=== PATIENT | female | born 1950 | race Caucasian/White ===

== ENCOUNTER → 2023-07-06 09:16 | Outpatient (REF) | payer BC, SELFPAY | LOC: RCS 09:16 | PROVIDERS: ATTENDING PHYSICIAN Internal Medicine Cardiovascular Disease; FAMILY PHYSICIAN Internal Medicine | DX: R00.1 Bradycardia, unspecified (principal); Z76.89 Persons encountering health services in other specified circumstances | CPT/HCPCS: 93225; 93226 ==

== ENCOUNTER 2023-07-18 12:09 | Emergency (ER) | payer SELFPAY ==
[2023-07-18 12:20] VITALS: BP 149/64
--- NOTE | 2023-07-18 15:00 | ED.GENMED ---
History of Present Illness
<MILO Nova - Last Filed: 07/18/23 16:32>
General
Chief Complaint: Musculo-Skeletal Complaint
Source: patient
Time Seen by Provider: 07/18/23 13:26
Nursing documentation reviewed up to this point in time: agreed with
Travel History
Have you had any contact with someone who has COVID-19?: No
Do you have any symptoms of coronavirus? Fever > 100 degrees, chills, cough, shortness of breath, sore throat, loss of taste or smell, muscle aches, or headache?: No
History of Present Illness
History of Present Illness:
Patient is a 71-year-old female who presents to the ER for evaluation of constipation. Patient reports that is been 7 days since her last good bowel movement. She has used stool softeners laxatives to bowels mag citrate and tried an enema but
reports she did not do it well. She only has had some liquid stool since using mag citrate. She denies any abdominal pain nausea vomiting she is eating well.
Her last colonoscopy was 1 year ago in [place] where she resided. Colonoscopy was normal. she currently resides here.
Patient also complains of redness to her anterior left foot. She had her shoelaces too tight and noticed a little swelling to the area and redness. This area is tender to touch. Denies any fevers. She does complain of discomfort to the area.
she does complain of
Review of Systems
<MILO Nova - Last Filed: 07/18/23 16:32>
Review of Systems
Allergies reviewed?: Yes
All Other Systems: ROS reviewed and negative except as documented in HPI and ROS
Constitutional: Reports no symptoms; Denies fever, fatigue or chills
Respiratory: Reports no symptoms
Cardiac: Reports no symptoms
ABD/GI: Reports constipated; Denies abdominal pain, nausea, vomiting or diarrhea
: Reports no symptoms
Musculoskeletal: Reports other (Redness to left anterior foot with mild discomfort)
Skin: Reports other (see above )
Neurological: Reports no symptoms
Hematologic/Lymphatic: Reports no symptoms
Psychiatric: Reports no symptoms
Phy Exam
<MILO Nova - Last Filed: 07/18/23 16:32>
General Physical Exam
General Presentation: no apparent distress
General age: appears stated age
General Skin: warm and dry
General Habitus: normal
General Mental: alert
General Hydration: appears well hydrated
Gastrointestinal Exam
Gastrointestinal Exam: non tender and soft
Neurological Exam
Neurological Exam: alert and oriented x3
Elin Coma Scale
Eye Opening: Spontaneous
Verbal Response: Oriented
Motor Response: Obeys Commands
GCS Total Score: 15
Musculoskeletal Exam
Musculoskeletal Exam: other (Left anterior foot with slight redness to old scar no swelling mildly tender no swelling to ankle or calf/foot no lymphangitis)
Skin Exam
Skin Exam: normal color and warm/dry
Psychiatric Exam
Psychiatric Exam: normal mood/affect
<Ashley Farias MD - Last Filed: 07/18/23 19:40>
Elin Coma Scale
GCS Total Score: 15
Course
<MILO Nova - Last Filed: 07/18/23 16:32>
Orders/Labs/Results
Orders:
Orders
07/18/23 12:25
Foot, Left 3 View [CR Foot - Left Min 3 Views] Urgent
Comment:
Reason For Exam: non traumatic foot pain
07/18/23 14:41
Obstruct Series W/PA Chest [CR Obstruct Series W/pa Chest] Urgent
Comment:
Reason For Exam: constipation
07/18/23 16:27
Cephalexin Monohydrate [Keflex] 500 mg PO NOW STA
Vital Signs
Initial and Last Documented VS:
Initial Vital Signs
Temp Pulse Resp BP Pulse Ox
97.5 F 57 18 149/64 97
07/18/23 12:20 07/18/23 12:20 07/18/23 12:20 07/18/23 12:20 07/18/23 12:20
Last Documented Vital Signs
Temp Pulse Resp BP Pulse Ox
97.5 F 54 16 180/77 95
07/18/23 12:20 07/18/23 16:42 07/18/23 16:42 07/18/23 16:42 07/18/23 16:42
Auger Press Operator consulted with Physician
Auger Press Operator consulted with physician?: Yes
Name of Physician Consulted: [email or web address]
<Ashley Farias MD - Last Filed: 07/18/23 19:40>
Orders/Labs/Results
Orders:
Orders
07/18/23 12:25
Foot, Left 3 View [CR Foot - Left Min 3 Views] Urgent
Comment:
Reason For Exam: non traumatic foot pain
07/18/23 14:41
Obstruct Series W/PA Chest [CR Obstruct Series W/pa Chest] Urgent
Comment:
Reason For Exam: constipation
07/18/23 16:27
Cephalexin Monohydrate [Keflex] 500 mg PO NOW STA
Vital Signs
Initial and Last Documented VS:
Initial Vital Signs
Temp Pulse Resp BP Pulse Ox
97.5 F 57 18 149/64 97
07/18/23 12:20 07/18/23 12:20 07/18/23 12:20 07/18/23 12:20 07/18/23 12:20
Last Documented Vital Signs
Temp Pulse Resp BP Pulse Ox
97.5 F 54 16 180/77 95
07/18/23 12:20 07/18/23 16:42 07/18/23 16:42 07/18/23 16:42 07/18/23 16:42
<MILO Nova - Last Filed: 07/18/23 16:32>
MDM/Problems Addressed
Differential Diagnosis Includes:
Not limited to constipation, less likely obstruction, cellulitis
MDM/Problems Addressed:
Patient presents with 2 different problems not related, patient complains of redness to left anterior foot after shoelaces were too tight. symptoms are consistent with mild cellulitis. Patient denies any fevers and is nontoxic will give Keflex
now and sent home with a prescription for Keflex. Patient also had constipation for the last week however is nontoxic no abdominal pain no vomiting no acute obstruction on x-ray abdomen is soft and nontender. She has tried as documented stool
softeners mag citrate MiraLAX but continues to have constipation however she is also eating a lot of bananas was not aware that these are constipating. Will have patient continue MiraLAX and stool softener and increase fiber diet fresh fruits and
vegetables etc. and to follow-up with her family doctor. She also has an appointment with GI soon.
<MILO Nova - Last Filed: 07/18/23 16:32>
*Radiology
Radiology exam reviewed: radiology read reviewed
*Pulse Oximetry
Patient hypoxic: no
*Critical Care Note
Total Time (30-74mins, 75-104mins- exclusive of procedures): Not Applicable
ED Attending Note
<MILO Nova - Last Filed: 07/18/23 16:32>
-
Portions of this chart may have been created with voice recognition software.� Occasional wrong word or��sound alike� substitutions may have occurred due to the inherent limitations of voice recognition software.
<Ashley Farias MD - Last Filed: 07/18/23 19:40>
ED Attending Note
Patient seen and examined by attending physician: Yes
I performed the substantive portion of visit, reviewed & personally made and approve the management plan that is documented in note by myself or STUART.: Yes
ED Attending Note:
73 yr old who has not had a bm in over a week, usually goes once a day,despite mult meds. No abd pain/fullness/n/v/fever or other related complnts. at bedside states that she has been passing loose brown stool, pt affirms s/p laxatives.
xray not c/w obstruction, moderate stool noted, no ipaction suspected. D/w pt import of hydration, d/c laxatives except daily miralax, rted for worrisome sxs such as n/v/pain etc. Pt also notes L foot pain, RIVER RAT thought to be c/w cellulitis/ Pt has
pcp f/u.
Discharge Plan
Departure
Patient Disposition: Home (Routine Discharge)
Date of Disposition: 07/18/23
Time of Disposition: 16:27
Patient with high blood pressure during this ER visit?: Yes
Covid-19: Not Applicable
Discharge Problem:
Acute constipation, Cellulitis
Instructions: Constipation, Adult (DC), Cellulitis (Skin Infection), Adult (DC)
Prescriptions:
New
cephalexin 500 mg capsule
500 mg PO Q6H Qty: 28 0RF
Referrals:
Viky Bal DO [Family Provider] -
Activity Restrictions/Additional Instructions:
As discussed for redness to your left foot: A prescription for Keflex, antibiotic was sent to your pharmacy take as directed return if any worsening of symptoms of increased redness pain red streaking fever chills or any further concerns.
Regarding constipation continue to use MiraLAX daily and stool softener. However increase fiber in your diet, fresh fruits, and vegetables blueberries you may try prune juice or pear juice, apples with the skins, greens. Avoid constipating foods
such as pasta , bananas applesauce.
Follow-up with your family doctor the next several days for reevaluation of both symptoms and GI as well for constipation. Return if any increasing abdominal pain nausea vomiting.
Interventions
Interventions:
*Risk Screen - Suicide Last Done: 07/18/23 12:20
*General Assessment Last Done: 07/18/23 12:20
*Neglect/Abuse Screening Last Done: 07/18/23 12:20
ED- Fall Risk Assessment Last Done: 07/18/23 13:38
*ED COVID-19 Vaccine History Last Done: 07/18/23 13:38
*Nursing Disposition Last Done: 07/18/23 16:49
AU-Fcipvw-Wzhvgwpszs Assessment Last Done: 07/18/23 13:37
ED-Musculoskeletal Assessment Last Done: 07/18/23 13:37
Discharge Date and Time
Discharge Date/Time: 07/18/23 16:49
Print Language: [place]
[2023-07-18] MEDS: KEFLEX 500 MG PO (16:41)
[2023-07-18 16:42] VITALS: BP 180/77
== END 2023-07-18 16:49 | disposition home or self-care (01) ==
LOC: EMR 12:09
PROVIDERS: EMERGENCY PHYSICIAN Emergency Medicine; FAMILY PHYSICIAN Internal Medicine
DX: K59.09 Other constipation (principal); L03.116 Cellulitis of left lower limb
CPT/HCPCS: 99283; 73630; 74022

== ENCOUNTER → 2023-10-13 11:09 | Outpatient (REF) | payer OTHER, SELFPAY | LOC: RCS 11:09 | PROVIDERS: ATTENDING PHYSICIAN Internal Medicine Cardiovascular Disease; FAMILY PHYSICIAN Internal Medicine | DX: R42 Dizziness and giddiness (principal); R00.1 Bradycardia, unspecified; Z95.2 Presence of prosthetic heart valve | CPT/HCPCS: 93306 ==

== ENCOUNTER → 2024-09-03 11:06 | Outpatient (REF) | payer OTHER, SELFPAY | LOC: RCS 11:06 | PROVIDERS: ATTENDING PHYSICIAN Student in an Organized Health Care Education/Training Program; FAMILY PHYSICIAN Family Medicine | DX: Z95.2 Presence of prosthetic heart valve (principal) | CPT/HCPCS: 93306 ==